=== PATIENT | male | born 1950 | race Two or more races ===

== ENCOUNTER 2023-05-05 19:23 | Emergency (ER) | payer MEDICAID ==
[~2023-05-05] VITALS: Ht 152.4 cm; Wt 60.0 kg
[2023-05-05 20:54] VITALS: TEMP 97.8
[2023-05-05] MEDS ORDERED: IBUP-1492 PO (22:34)
[2023-05-05] MEDS ORDERED: IBUPROFEN 600 MG TABLET PO ONE (22:45)
[2023-05-05 23:26] VITALS: BP 148/89; PULSE 74; RESP 17
== END 2023-05-05 23:28 | disposition home or self-care (01) ==
LOC: EMS 19:26
DX: S20.211A Contusion of right front wall of thorax, initial encounter (principal); F17.210 Nicotine dependence, cigarettes, uncomplicated; W19.XXXA Unspecified fall, initial encounter; Y93.89 Activity, other specified; Y92.89 Other specified places as the place of occurrence of the external cause; Y99.8 Other external cause status
CPT/HCPCS: 71101; 99283